=== PATIENT | male | born 1995 | race African-American/Black ===

== ENCOUNTER 2020-02-23 18:34 | Emergency (ER) | payer OTHER ==
[~2020-02-23] VITALS: Ht 172.7 cm; Wt 65.5 kg
--- NOTE | 2020-02-23 19:21 | REPVR ---
PROCEDURE INFORMATION: Exam: XR Right Ankle Exam date and time: 02/23/2020 7:07 PM Age: 24 years old Clinical indication: Other: Kickball; Additional info: Injury R ankle, pain medial and lateral TECHNIQUE: Imaging protocol: XR Right ankle. Views: 3 or more views. COMPARISON: No relevant prior studies available. FINDINGS: Bones/joints: Normal. Soft tissues: Normal. IMPRESSION: No acute findings. Electronically signed by: Charles Whyte On 02/23/2020 19:21:11 PM
[2020-02-23] MEDS ORDERED: IBUP-1022 PO (19:53)
[2020-02-23 20:00] VITALS: BP 130/67
== END 2020-02-23 20:02 | disposition home or self-care (01) ==
LOC: M ED 18:34 → EDBD 18:34 → M ED 20:02
DX: S93.401A Sprain of unspecified ligament of right ankle, initial encounter (principal); X50.9XXA Other and unspecified overexertion or strenuous movements or postures, initial encounter; Y92.59 Other trade areas as the place of occurrence of the external cause; Y93.89 Activity, other specified; Y99.8 Other external cause status

== ENCOUNTER 2020-08-29 02:06 | Emergency (ER) | payer OTHER ==
[~2020-08-29] VITALS: Ht 167.6 cm; Wt 64.1 kg
[~2020-08-29 02:06] MED LIST: IBUP-1022 PO
[2020-08-29 02:18] VITALS: BP 159/83
[2020-08-29] MEDS ORDERED: KETOROLAC 60MG 2ML VIAL IM ONE (02:45)
[2020-08-29] MEDS ORDERED: IBUP80TA PO (03:14)
== END 2020-08-29 03:20 | disposition home or self-care (01) ==
LOC: M ED 02:06
DX: T23.202A Burn of second degree of left hand, unspecified site, initial encounter (principal); T31.0 Burns involving less than 10% of body surface; X31.XXXA Exposure to excessive natural cold, initial encounter; Y92.410 Unspecified street and highway as the place of occurrence of the external cause; Y93.02 Activity, running; Y99.9 Unspecified external cause status
CPT/HCPCS: 96372; 99284; J1885

== ENCOUNTER 2021-08-14 10:14 | Emergency (ER) | payer OTHER ==
[~2021-08-14] VITALS: Ht 175.3 cm; Wt 69.4 kg
[~2021-08-14 10:14] MED LIST changes: +IBUP80TA PO
[2021-08-14 13:36] VITALS: BP 118/63
== END 2021-08-14 13:44 | disposition home or self-care (01) ==
LOC: M ED 10:14
DX: S09.90XA Unspecified injury of head, initial encounter (principal); W00.9XXA Unspecified fall due to ice and snow, initial encounter; Y92.89 Other specified places as the place of occurrence of the external cause; Y93.9 Activity, unspecified; Y99.1 Military activity